=== PATIENT | female | born 1995 | race Caucasian/White ===

== ENCOUNTER 2019-10-01 17:00 | Outpatient (REF) | payer BC, OTHER, SELFPAY ==
[2019-10-01 19:10] LABS: MCH 27.3 pg (27.0-33.0); MCHC 31.8 % (32.0-36.0); MCV 85.9 fL (80-95); MPV 11.2 fL (8.0-11.0); Platelet Count 276 10^3/uL (130-400); RBC 5.12 10^6/uL (3.93-5.22); RDW 14.4 % (11.7-14.6); RDW-SD 44.8 fL; WBC 10.89 10^3/uL (4.4-10.8)
[2019-10-01 19:32] LABS: ALT 43 U/L (14-59); AST 20 U/L (15-37); Albumin 3.9 g/dL (3.4-5.0); Alkaline Phosphatase 94 U/L (46-116); Anion Gap 8.7 mmol/L (3-11); BUN 12 mg/dL (7-18); Bilirubin, Total 0.2 mg/dL (0.2-1.0); CO2 27.3 mmol/L (21.0-32.0); Calcium 9.4 mg/dL (8.5-10.1); Chloride 106 mmol/L (98-107); Glucose 100 mg/dL (74-106); Potassium 4.1 mmol/L (3.5-5.1); Sodium 142 mmol/L (136-145); TSH 1.39 uIU/mL (0.36-3.74); Total Protein 6.9 g/dL (6.4-8.2)
[2019-10-01 20:14] LABS: Hemoglobin A1C 5.5 % (3.8-5.6)
== END 2019-10-01 17:20 ==
LOC: NCHCN 17:00
PROVIDERS: PCP Internal Medicine; Visit Provider Internal Medicine
DX: F31.81 Bipolar II disorder (principal); G43.909 Migraine, unspecified, not intractable, without status migrainosus; E66.9 Obesity, unspecified
CPT/HCPCS: 80053; 85027; 83036; 84443

== ENCOUNTER 2020-01-07 20:35 | Outpatient (REF) | payer BC, SELFPAY ==
[2020-01-12 03:59] LABS: SARS-CoV-2 RNA Undetected (Undetected); SARS-CoV-2 Specimen Source Nasal
== END 2020-01-07 20:55 ==
LOC: NCHCN 20:35
PROVIDERS: PCP Internal Medicine; Visit Provider Nurse Practitioner Family
DX: Z20.828 Contact with and (suspected) exposure to other viral communicable diseases (principal)
CPT/HCPCS: U0003

== ENCOUNTER 2020-06-11 02:39 | Outpatient (CLI) | payer BC, SELFPAY ==
[2020-06-11 09:46] VITALS: BP 143/84; PULSE 97; RESP 20; TEMP 37.3; O2SAT 94
[2020-06-11 09:47] VITALS: BP 143/84; PULSE 97; RESP 20; TEMP 37.3; O2SAT 94
[2020-06-11] MEDS: Normal Saline 500 ML 30 ML IV (11:08)
[2020-06-11] MEDS: Normal Saline Flush 10 ML SYR IVP (11:08)
[2020-06-11 11:14] VITALS: BP 138/80; PULSE 102; RESP 20; TEMP 36.3; O2SAT 92
[2020-06-11 11:52] VITALS: BP 121/80; PULSE 107; RESP 16; TEMP 36.9; O2SAT 92
[2020-06-11 12:19] VITALS: BP 119/77; PULSE 107; RESP 22; TEMP 36.4; O2SAT 92
[2020-06-11 12:47] VITALS: BP 130/66; PULSE 106; RESP 18; TEMP 36.9; O2SAT 92
== END 2020-06-11 02:40 | disposition home or self-care (01) ==
LOC: INF 02:39
PROVIDERS: PCP Internal Medicine; Visit Provider Family Medicine
DX: U07.1 COVID-19 (principal)
CPT/HCPCS: 96365

== ENCOUNTER 2020-07-16 12:36 | Outpatient (REF) | payer BC, SELFPAY ==
--- OUTSIDE RECORDS SUMMARY | 2020-07-16 12:40 | XMS_ITS ---
:1995 Author Care Team Providers Name Role Phone LUPE CASE MD Field Health Officer [phone] WILL VERONICA MD Primary Care Provider [phone] Allergies Code Code System Name Reaction Severity Status Onset NKDA ? Medications Name Status Start Date Stop Date ? ? Depo-Provera 150 mg/mL intramuscular suspension Active ? Not available Inject 1 mL every 3 months by intramuscular route. fluoxetine 20 mg capsule Active ? Not henrry ilable fluticasone propionate 50 mcg/actuation Completed ? 02/07/2018 nasal spray,suspension lamotrigine 100 mg tablet Active ? Not av ailable lamotrigine 25 mg tablet Completed ? 019 50 mg daily lithium carbonate 300 mg capsule Completed ? 11/24/2018 Problems Name Status Onset Date Source ? Sclerosing Mesenteritis Active ? History Surveillance of [place] Contraception Done Active ? History Procedures Date Name Performed by ? ? [place] Teeth Extraction Information not available ? Tonsillectomy Information not avai lable Notes: and Adenoidectomy Results Lab Results Date Name Specimen Result Interpretation Description Value Range Status Address ? 12/04/2018 ? No ? ? ? P_o b/[place]: Test, Urine observation [address] Medical recorded. [facility] 11/24/2018 beta-HCG, S - HCG, Quant <2.4 2.0-6.0 Sol [place] Quantitative, [IU]/mL [IU]/mL C ount Serum or Hospital Plasma Lab (Internal) : [address] [place] 11/18/2017 ? Hcg negative ? ? P _ob/[place]: Test, Urine 81 Me dical [facility] 12/21/2016 Venipuncture BLD ? Venpn* ? ? Final [facility] Lab (Internal) : [address] [place] 12/21/2016 CT RNA, Qual, MISC ? Specimen vaginal ? Fi williams [place] PCR, Description Count ry Unspecified Hospi tess Specimen Lab (Internal) : [address] [place] ? ? MISC ? Chlamydia negative ? Final Nort h Result [facility] Hospital Lab (Internal) : [address] [place] ? ? MISC ? GC Result negative ? Final [facility] Lab (Internal) : [address] [place] 12/21/2016 RPR (Rapid BLD ? Rpr non-reacti non-jami Sol l [place] Plasma ve ctive [place]), Serum Ho spital Lab (Internal) : [address] [place] 12/21/2016 HIV (1+2) Ab S ? HIV 1/2 negative negat Fin al [place] Screen, Serum Antibody C [facility] Lab (Internal) : [address], [place] 12/21/2016 Hepatitis C S ? Hep C Ab W negative negat F inal [place] Virus Ab, Rfx PCR Countr [facility] Lab (Internal) : [address] [place] 06/23/2016 Venipuncture BLD ? Venpn* ? ? Final [facility] Lab (Internal) : [address] [place] 06/23/2016 [place], Serum S Low Li 0.30 0.60-1. Sol l [place] mmol/L 20 Country mmol/L Hospital Lab (Internal) : [address] [place] 06/23/2016 TSH, Serum or S ? Tsh 2.18 0.47-4. Final [facility] u[IU]/mL 68 [place] u[IU]/m Hospital L Lab (Internal) : [address] [place] Past Encounters 03/03/2020 Surveillance of [place] Contraception Done Lupe Case MD: [address] [place] [phone], Ph. 12/17/2019 Surveillance of [place] Contraception Done Lupe Case MD: [address] [place] [phone], Ph. 10/01/2019 Contraception Care Management Lupe Case MD: [address] [place] [phone], Ph. 07/16/2019 Contraception Care Management Lupe Case MD: [address] [place] [phone], Ph. 04/30/2019 Contraception Care Management Lupe Case MD: [address] [place] [phone], Ph. 02/07/2019 Contraception Care Management Lupe Case MD: [address] [place] [phone], Ph. Social History Tobacco Smoking Status Current Every Day Smoker Vaccine List None recorded. Plan of Care Reminders Provider Appointments None ? ? recorded. Lab None ? ? recorded. Referral None ? ? recorded. Procedures None ? ? recorded. Surgeries None ? ? recorded. Imaging None ? ? recorded. Vitals 03/03/2020 01:50PM Injection 10 Height 163.83 cm 12/17/2019 01:00PM Injection 10 Height Weight BMI 163.83 cm 175.54 kg 65.4 kg/m2 10/01/2019 01:00PM Injection 10 Height Weight BMI 163.83 cm 154.68 kg 57.6 kg/m2 04/30/2019 01:00PM Injection 10 Height Weight BMI 163.83 cm 158.3 kg 59 kg/m2 02/07/2019 01:00PM Injection 10 Height Weight BMI Blood Pressure 163.83 cm 158.76 kg 59.1 kg/m2 140/74 mm[Hg] 11/24/2018 10:00AM Office 20 Height Weight BMI Blood Pressure 163.83 cm 160.12 kg 59.7 kg/m2 130/76 mm[Hg] 07/07/2018 09:40AM Injection 10 Height Weight BMI Blood Pressure 163.83 cm 157.4 kg 58.6 kg/m2 130/74 mm[Hg] 04/21/2018 03:30PM Injection 10 Height Weight BMI Blood Pressure 163.83 cm 153.31 kg 57.1 kg/m2 130/76 mm[Hg] 02/07/2018 02:40PM Injection 10 Height Weight BMI 163.83 cm 153.31 kg 57.1 kg/m2 11/18/2017 01:10PM Injection 10 Height Weight BMI Blood Pressure 163.83 cm 146.96 kg 54.8 kg/m2 128/78 mm[Hg] 03/29/2017 Weight Blood Pressure 133.13 kg 118/80 mm[Hg] 12/21/2016 Height Weight Blood Pressure 163.83 cm 134.67 kg 122/70 mm[Hg] 12/20/2016 Height Weight Blood Pressure 163.83 cm 134.67 kg 124/72 mm[Hg]
[2020-07-16 20:57] LABS: Calculated LDL 77 mg/dL (<100); Cholesterol 136 mg/dL (<200); HDL Cholesterol 28 mg/dL (40-60); TSH (W/Ref FT4) 1.59 uIU/mL (0.36-3.74); Triglyceride 159 mg/dL (<150)
[2020-07-16 21:02] LABS: Hemoglobin A1C 5.3 % (<5.7)
[2020-07-21 14:33] LABS: Testosterone, Total 10 ng/dL (8-60)
== END 2020-07-16 12:37 | disposition home or self-care (01) ==
LOC: NCHCN 12:36
PROVIDERS: PCP Internal Medicine; Visit Provider Nurse Practitioner Family
DX: Z13.220 Encounter for screening for lipoid disorders (principal); Z68.44 Body mass index [BMI] 60.0-69.9, adult; L83 Acanthosis nigricans; Z13.1 Encounter for screening for diabetes mellitus
CPT/HCPCS: 80061; 84402; 84403; 83036; 84443

== ENCOUNTER 2020-09-25 13:26 | Outpatient (REF) | payer BC, SELFPAY ==
[2020-09-25 19:10] LABS: Abs Immature Grans 0.03 10^3/uL (0.0-0.06); Absolute Basophil Count 0.07 10^3/uL (0.0-0.2); Absolute Eosinophil Count 0.13 10^3/uL (0.0-0.7); Absolute Lymphocyte Count 2.98 10^3/uL (1.2-3.4); Absolute Monocyte Count 0.66 10^3/uL (0.1-0.8); Basophils % 0.7; Eosinophils % 1.3; HCT 47.9 % (36.0-46.0); HGB 15.2 g/dL (11.2-15.7); Immature Grans % 0.3; Lymphocytes % 30.2; MCH 27.7 pg (27.0-33.0); MCHC 31.7 % (32.0-36.0); MCV 87.4 fL (80-95); MPV 11.1 fL (8.0-11.0); Monocytes % 6.7; Neutrophils % 60.8; Nucleated RBC 0 %; Platelet Count 324 10^3/uL (130-400); RBC 5.48 10^6/uL (3.93-5.22); RDW 14.6 % (11.7-14.6); RDW-SD 46.6 fL; WBC 9.87 10^3/uL (4.4-10.8)
== END 2020-09-25 13:27 | disposition home or self-care (01) ==
LOC: NCHCN 13:26
PROVIDERS: PCP Internal Medicine; Visit Provider Nurse Practitioner Family
DX: R19.7 Diarrhea, unspecified (principal); R10.9 Unspecified abdominal pain
CPT/HCPCS: 85025

== ENCOUNTER 2021-08-21 15:46 | Outpatient (REF) | payer BC, SELFPAY ==
[2021-08-21 19:20] LABS: TSH 1.67 uIU/mL (0.36-3.74)
== END 2021-08-21 15:47 | disposition home or self-care (01) ==
LOC: NCHCN 15:46
PROVIDERS: PCP Internal Medicine; Visit Provider Internal Medicine
DX: R53.83 Other fatigue (principal)
CPT/HCPCS: 84443

== ENCOUNTER 2022-08-06 00:10 | Outpatient (CLI) | payer BC, SELFPAY ==
--- NOTE | 2022-08-06 12:15 | DI.MRI_ITS ---
Exam(s) MR BRAIN WO/W EXAM: MR BRAIN WO/W CLINICAL HISTORY: VISUAL FIELD DEFECT, H53.40 TECHNIQUE: Multiplanar multisequence MRI of the brain was performed. CONTRAST MATERIAL: IV Contrast: 20 mL of Dotarem contrast administered. COMPARISON: No exams were available for comparison FINDINGS: VENTRICLES AND EXTRA AXIAL SPACES: Normal in size and morphology for the patient's age. HEMORRHAGE: None. CEREBRAL PARENCHYMA: No focus of restricted diffusion to suggest acute infarct. No space-occupying le gissel identified. MIDLINE SHIFT: None. BRAINSTEM/CEREBELLUM: Normal. CALVARIUM: Normal. ENHANCEMENT: No suspicious enhancement identified. VISUALIZED PARANASAL SINUSES/MASTOIDS: Clear. [place]: Normal flow void. PITUITARY GLAND: Unremarkable. The optic chiasm and infundibulum are unremarkable. OTHER FINDINGS: There is a question of mild hyperintense signal seen in the left optic nerve. This e xam however is not a dedicated orbital MRI. IMPRESSION: 1. Unremarkable MRI of the brain. No evidence of an intracranial mass or abnormal enhancement. 2. There is mild hyperintense signal seen in the left optic nerve on the T1 weighted images. This ma y be due to volume averaging. This is not a dedicated orbital MRI. If there is concern for orbital pathology, an MRI of the orbits without and with contrast should be obtained. DATA REPOSITORY:
[2022-08-06] MEDS: Gadoterate meglumine 20 ML SYRINGE IVP (13:06)
[2022-08-06] MEDS: Normal Saline Flush 10 ML SYR IJ (13:07)
[2022-08-06 13:15] LABS: Estimated GFR 80.68 (mL/min/1.73m2)
== END 2022-08-06 00:30 ==
LOC: DI 00:10
PROVIDERS: PCP Internal Medicine; Visit Provider Internal Medicine
DX: R90.89 Other abnormal findings on diagnostic imaging of central nervous system (principal); H53.40 Unspecified visual field defects
CPT/HCPCS: 70553; 82565

== ENCOUNTER 2022-08-12 00:50 | Outpatient (CLI) | payer BC, SELFPAY ==
--- NOTE | 2022-08-12 | DI.MRI_ITS ---
Exam(s) MR ORBIT FACIAL NECK WO/W EXAM: MR ORBIT FACIAL NECK WO/W CLINICAL HISTORY: VISUAL FIELD DEFECT H53.40 CONCERN FOR OPTIC NEURITIT, LOSS RED SATURATION TECHNIQUE: Multiplanar multisequence MRI of the brain was performed. CONTRAST MATERIAL: IV Contrast: 20 ML of Dotarem contrast administered. COMPARISON: No exams were available for comparison FINDINGS: BRAIN: There is no evidence of intracranial hemorrhage, mass effect, or shift of midline structures. There are no extra-axial fluid collections. The ventricles are not enlarged nor shifted. There is no significant signal abnormality in the periventricular white matter. FLOW VOIDS: Expected flow voids are noted. No evidence of aneurysm nor obvious vascular malformation. PITUITARY GLAND/CAVERNOUS SINUSES: Unremarkable VISUALIZED PARANASAL SINUSES: Clear. OTHER INTRACRANIAL FINDINGS: None ORBITS: ORBITS: The anterior and posterior chambers of the globes are intact. The retrobulbar fat is unremark able. Extraocular muscles are unremarkable. OPTIC NERVES: The optic nerves are appear unremarkable.. Optic chiasm appears unremarkable.. No MRI evidence of optic neuritis identified. SOFT TISSUES: Lacrimal glands appear unremarkable. Remaining soft tissues are unremarkable. OTHER FINDINGS: None. IMPRESSION: 1. No significant findings on this MRI scan of the brain and orbits. 2. No evidence of obvious optic neuritis nor other acute orbital pathology 3. DATA REPOSITORY:
[2022-08-12] MEDS: Gadoterate meglumine 20 ML VIAL IVP (15:01)
[2022-08-12] MEDS: Normal Saline Flush 10 ML SYR IJ (15:02)
--- NOTE | 2022-08-12 18:03 | DI.VRAD_ITS ---
PROCEDURE INFORMATION: Exam: MR Orbit Without and With Contrast Exam date and time: 08/12/2022 2:35 PM Age: 26 years old Clinical indication: Other: Visual field defect, concern for optic neuritit, loss red saturation TECHNIQUE: Imaging protocol: MR Orbit was performed without and with contrast. COMPARISON: MR BRAIN WO/W 08/06/2022 12:44 PM FINDINGS: Orbital cavities: Both globes are intact and the optic nerves are normal course and caliber bilaterally with no abnormal mass or enhancement detected. Paranasal sinuses: Grossly clear throughout. Brain: No intracranial mass, acute infarct or recent hemorrhage detected. Cerebral ventricles: No midline shift or hydrocephalus. Mastoid air cells: Grossly clear bilaterally. Bones/joints: No acute fracture. Soft tissues: Unremarkable. IMPRESSION: Unremarkable enhanced MRI of the brain and orbits. No evidence of optic neuritis or other acute intraorbital pathology detected. Dictated and Authenticated by: Danny Bond MD. Ordering:ROMERO Elkins MD
== END 2022-08-12 01:10 ==
PROVIDERS: PCP Internal Medicine; Visit Provider Internal Medicine
DX: H53.40 Unspecified visual field defects (principal)
CPT/HCPCS: 70543

== ENCOUNTER 2023-07-22 14:05 | Outpatient (REF) | payer BC, SELFPAY ==
[2023-07-22 19:21] LABS: ALT 38 U/L (14-59); AST 18 U/L (15-37); Albumin 4.2 g/dL (3.4-5.0); Alkaline Phosphatase 93 U/L (46-116); Anion Gap 8.4 mmol/L (3-11); BUN 14 mg/dL (7-18); Bilirubin, Total 0.4 mg/dL (0.2-1.0); CO2 22.6 mmol/L (21.0-32.0); CREATININE 1.1 mg/dL (0.55-1.02); Calcium 9.5 mg/dL (8.5-10.1); Chloride 109 mmol/L (98-107); Estimated GFR 71.51 (mL/min/1.73m2); Glucose 88 mg/dL (74-106); Potassium 3.6 mmol/L (3.5-5.1); Sodium 140 mmol/L (136-145); TSH 1.99 uIU/Ml (0.36-3.74); Total Protein 7.8 g/dL (6.4-8.2)
== END 2023-07-22 14:06 | disposition home or self-care (01) ==
LOC: NCHCN 14:05
PROVIDERS: PCP Internal Medicine; Visit Provider Internal Medicine
DX: F31.89 Other bipolar disorder (principal); E66.9 Obesity, unspecified
CPT/HCPCS: 80053; 84443

== ENCOUNTER 2024-11-08 14:55 | Outpatient (REF) | payer MEDICAID, SELFPAY ==
[2024-11-08 19:03] LABS: Abs Immature Grans 0.02 10^3/uL (0.0-0.06); HCT 38.7 % (36.0-46.0); HGB 12.1 g/dL (11.2-15.7); Immature Grans % 0.2 %; MCH 28.1 pg (27.0-33.0); MCHC 31.3 % (32.0-36.0); MCV 90 fL (80-95); MPV 10.5 fL (8.0-11.0); Platelet Count 311 10^3/uL (130-400); RBC 4.30 10^6/uL (3.93-5.22); RDW 14.0 % (11.7-14.6); RDW-SD 45.9 fL; WBC 8.18 10^3/uL (4.4-10.8)
[2024-11-08 19:38] LABS: ALT 36 U/L (14-59); AST 19 U/L (15-37); Albumin 3.7 g/dL (3.4-5.0); Alkaline Phosphatase 75 U/L (46-116); Anion Gap 9.3 mmol/L (3-11); BUN 11 mg/dL (7-18); Bilirubin, Total 0.5 mg/dL (0.2-1.0); CO2 26.7 mmol/L (21.0-32.0); Calcium 9.4 mg/dL (8.5-10.1); Chloride 106 mmol/L (98-107); Estimated GFR 70.63 (mL/min/1.73m2); Glucose 91 mg/dL (74-106); Potassium 3.8 mmol/L (3.5-5.1); Sodium 142 mmol/L (136-145); Total Protein 7.3 g/dL (6.4-8.2)
== END 2024-11-08 14:56 | disposition home or self-care (01) ==
LOC: NCHCN 14:55
PROVIDERS: PCP Internal Medicine; Visit Provider Physician Assistant
DX: R50.9 Fever, unspecified (principal)
CPT/HCPCS: 80053; 85025